=== PATIENT | female | born 1995 | race Caucasian/White ===

== ENCOUNTER 2025-01-09 09:34 | Emergency (ER) | payer BC, OTHER ==
[2025-01-09] MEDS: Lidocaine 1% 10 ML MDV INJECT ONE (10:00)
== END 2025-01-09 11:00 | disposition home or self-care (01) ==
LOC: EEVIPCON 09:34 → JD.ED 09:34
DX: S31.41XA Laceration without foreign body of vagina and vulva, initial encounter (principal); I10 Essential (primary) hypertension; E66.9 Obesity, unspecified; Z68.25 Body mass index [BMI] 25.0-25.9, adult; Z79.899 Other long term (current) drug therapy; X58.XXXA Exposure to other specified factors, initial encounter
CPT/HCPCS: 12001; 99282; J2003; 99284